=== PATIENT | female | born 1955 | race Caucasian/White ===

== ENCOUNTER → 2020-05-26 20:17 | Outpatient (CLI) | payer MEDICARE, BC, SELFPAY | PROVIDERS: PCP Family Medicine; Referring Provider Family Medicine; Visit Provider Family Medicine | DX: G47.33 Obstructive sleep apnea (adult) (pediatric) (principal); R60.0 Localized edema | CPT/HCPCS: 95810 ==

== ENCOUNTER → 2020-07-15 20:32 | Outpatient (CLI) | payer MEDICARE, BC, SELFPAY | PROVIDERS: PCP Family Medicine; Visit Provider Family Medicine | DX: G47.33 Obstructive sleep apnea (adult) (pediatric) (principal) | CPT/HCPCS: 95811 ==

== ENCOUNTER 2021-07-15 08:45 | Outpatient (RCR) | payer MEDICARE, BC, SELFPAY ==
[2021-07-08 08:27] VITALS: BP 171/76; PULSE 61; TEMP 36.4
--- NOTE | 2021-07-08 09:05 | PCM.WC.HP ---
History of Present Illness Date of Service: 07/08/21 Chief Complaint: Follow-up right lower leg puncture wound nonhealing since February or March History of Wound: 66-year-old white female with a history of peripheral vascular disease and has had several venous repairs on the right lower leg , unable to stand because was up in her right groin. So she has constant pain and some swelling on and off in her lower extremities. She was hunting for mushrooms at the time that she was stuck by a briar [employer] Hand she had 2 puncture wounds one healed and one did not. She has been using cortisone cream on it per her doctor's orders. [facility] Home Medications Multi-Daily 07/08/21 [History Last Taken Unknown] acetaminophen [Tylenol Ex Str Arthritis Pain] 1,000 mg PO Q6H PRN 07/08/21 [History Last Taken Unknown] bupropion HCl [Wellbutrin SR] mg PO 07/08/21 [History Last Taken Unknown] glucosamine sulfate [Glucosamine] 500 mg PO DAILY 07/08/21 [History Last Taken Unknown] levothyroxine [Synthroid] 100 mcg PO DAILY 07/08/21 [History Last Taken Unknown] meloxicam [Mobic] 7.5 mg PO DAILY 07/08/21 [History Last Taken Unknown] omega-3 fatty acids [[place] 3] 500 mg PO DAILY 07/08/21 [History Last Taken Unknown] psyllium [Metamucil] 1 packet PO TID 07/08/21 [History Last Taken Unknown] ROS Integumentary Integumentary: Reports non-healing lesions and wounds Vital Signs Vital Signs Vital Signs: 07/08/21 08:27 Temperature 97.5 F L Temperature Source Oral Pulse Rate 61 Blood Pressure 171/76 H Blood Pressure Mean 107 Blood Pressure Source Monitor Blood Pressure Position Semi-Fowlers Blood Pressure Location Left Arm Physical Exam Const oriented x3 General Appearance: cooperative Exam Limitations: no limitations Resp normal respiratory effort Effort and Inspection: able to speak in complete sentences Auscultation: clear to auscultation bilaterally Cardio regular rate and regular rhythm Palpation: normal PMI Rate: regular rate Rhythm: regular rhythm GI Auscultation: normoactive bowel sounds Palpation: soft and no hepatosplenomegaly Extremity normal to inspection General Extremity: normal exam except as noted Skin Trauma: puncture Neuro oriented x3 Psych Appearance: grossly normal Speech: normal speech Thought Content: normal thought content Judgement: judgement good Debridement Note Debridement Note Wound debrided: Right lower ankle puncture wound from trauma Type of Debridement: Excisional debridement Anesthesia Used: 5% Lidocaine Gel Depth: Down to and including healthy tissue Percentage of wound debrided: 100 Instrument Used: 3mm curette Severity: Fat Layer Exposed Amount of bleeding with debridement: Mild Bleeding Controlled with: Pressure Patient tolerated procedure: Patient tolerated procedure well Post-Debridement Measurements and Additional Note: Post-Debridement Measurements/Treatment - Nurse 1 - General Ulcer Assessment Start: 07/08/21 08:26 Freq: Status: Active Protocol: NOHEMI Activity Type Activity Date Activity User E-Sign Co-Sign Detail Recorded Client Recorded Date Recorded By Document 07/08/21 08:27 KEVIN [id number] 07/08/21 08:29 07/08/21 08:27 WC - Today's Visit Information Type of service Initial Visit Arrival Mode Ambulatory Patient Identification Verified (Name & Yes ) Vital Signs Temperature (97.8 F-99.1 F) 97.5 F L Temperature Source Oral Pulse Rate (60-100) 61 Pulse Location Monitor Blood Pressure (90/60-120/80) 171/76 H Blood Pressure Mean 107 Source Monitor Position Semi-Fowlers Blood Pressure Location Left Arm History Since Last Visit- (Skip if this is Patient's initial visit) Have you changed medications since your No last visit? Any new allergies or adverse reactions No Had a fall/change in ADL's that may No increase risk of falls Signs or symptoms of abuse and/or No neglect since last visit Have you been in the hospital since your No last visit? Has dressing in place as prescribed No Has compression in place as prescribed N/A Has offloadiing in place as prescribed N/A Experienced any changes in pain level or No management Left Footwear Regular Shoe Right Footwear Regular Shoe Pain Scale: 0-10 Numeric Is Patient Pain Free? Yes - Nurse 1 - General Ulcer Measurement Start: 07/08/21 08:26 Freq: Status: Active Protocol: Activity Type Activity Date Activity User E-Sign Co-Sign Detail Recorded Client Recorded Date Recorded By Document 07/08/21 08:27 KEVIN [id number] 07/08/21 08:29 KEVIN 07/08/21 08:27 Wound Center Nurse 1 #1 Right Medial Ankle -Current Size (cm) - Length 0.2 -Current Size (cm) - Width 0.2 -Current Size (cm) - Depth 0.2 -Total Square Cm 0.04 -Granulation Amt Small (1-33%) -Granulation Quality [place] -Necrosis Amt Small (1-33%) -Necrotic Tissue Type Adherent Slough -Texture (Ana-wound Skin Appearance) Assessed, Scarring -Moisture (Ana-wound Skin Appearance) Assessed,Dry/ Scaly -Color (Ana-wound Skin Appearance) No Abnormality, Assessed -Temperature (Ana-wound Skin No Abnormality Appearance) (Pt Warm) -Tenderness on Palpation (Ana-wound No Skin Appearance) -Ulcer Cleansing Rinsed/ Irrigated with Saline -Anesthetic Used 4% Lidocaine Solution,5% Lidocaine Gel Right Calf (cm) 46 Right Ankle (cm) 22 WC - Nurse 2 - General Ulcer CM Notes Start: 07/08/21 08:26 Freq: Status: Active Protocol: Activity Type Activity Date Activity User E-Sign Co-Sign Detail Recorded Client Recorded Date Recorded By Document 07/08/21 08:51 MW [id number] 07/08/21 08:57 MW 07/08/21 08:51 Wound Center Nurse 2 #1 Right Medial Ankle -Time 08:53 -Correct Patient Yes -Correct Side, Site, Position Yes -Correct Procedure Yes -Procedure Performed Yes -Type of Procedure Debridement -Clinical Debridement Subcutaneous -Tissue Removed Subcutaneous -Post Debridement (cm) - Length 0.3 -Post Debridement (cm) - Width 0.3 -Post Debridement (cm) - Depth 0.2 -Total Square (Post) (cm) 0.09 -Area of Debridement (cm) - Length 0.3 -Area of Debridement (cm) - Width 0.3 -Total Square (Area) (cm) 0.09 -Tunneling No -Undermining/Tunneling No -Circular Undermining No -Wound/Ulcer Outcome Not Healed -Ulcer Cleansing Rinsed/ Irrigated with Saline -Foul Odor after Cleansing No -Bioengineered Tissue No -Bleeding Controlled with Pressure -Offloading No -Debridement - Subq, 1st 20sq cm Yes Pain Scale: 0-10 Numeric Is Patient Pain Free? Yes MARVIN - Nurse 3 - General Ulcer D/C NN Start: 07/08/21 08:26 Freq: Status: Active Protocol: Activity Type Activity Date Activity User E-Sign Co-Sign Detail Recorded Client Recorded Date Recorded By Document 07/08/21 09:03 BECKY [id number] 07/08/21 09:04 BECKY 07/08/21 09:03 Wound Care Nurse 3 #1 Right Medial Ankle -Ulcer Cleansing Rinsed/ Irrigated with Saline -Foul Odor after Cleansing No -Negative Pressure Wound Therapy N/A -Primary Dressing Applied NonAdherent Contact Layer, Promogran -Primary Dressing Covered/Secured with Dry Gauze, Secured with Tape -Promogran 1 WC - Visit Discharge Discharge Condition Stable Ambulatory Status Ambulatory Transportation Private Auto Medication Reconcilliation completed & Yes provided to patient/care provider Clinical Summary of Care Provided Yes Assessment/Plan Assessment/Plan (1) Infected wound: CODE(S): T14.8XXA - Other injury of unspecified body region, initial encounter; L08.9 - Local infection of the skin and subcutaneous tissue, unspecified PLAN: We'll call with the culture results (2) Puncture wound: CODE(S): T14.8XXA - Other injury of unspecified body region, initial encounter PLAN: Wash leg with antibacterial soap pack small wound with Promogran Adaptic over top gauze dressing and Olga every day Follow-up in 1 week (3) Peripheral vascular disease: CODE(S): I73.9 - Peripheral vascular disease, unspecified PLAN: Start wearing the pression stockings that were prescribed to the right leg (4) Edema of right lower leg: CODE(S): R60.0 - Localized edema
[2021-07-15 09:02] VITALS: BP 160/70; PULSE 62; TEMP 36.6
--- NOTE | 2021-07-15 09:16 | PN.PCM_ITS ---
History of Present Illness Date of Service: 07/15/21 Chief Complaint: Follow-up right lower leg puncture wound nonhealing since February or March History of Wound: 66-year-old white female with a history of peripheral vascular disease and has had several venous repairs on the right lower leg , unable to st and because was up in her right groin. So she has constant pain and some swelling on and off in her lower extremities. She was hunting for mushrooms at the time that she was stuck by a briar [employer] she had 2 puncture wounds one healed and one did not. She has been using cortisone cream on it per her doctor's orders. Progress of Wound: Cultures came back positive for strep patient will be started on clindamycin which she only started this last Tuesday. The wound still looks angry some redness around the wound tender to palpate and still has a lot of slough in the base of the wound. Subjective Subjective Patient complains of soreness edema is better with wearing the compression stocking Objective Data Objective Data As explained above patient is growing a bacteria once the antibiotic kicks in I think the redness will disappear patient is on Promogran we will continue using that for now the wound really has not moved in the last week. Vital Signs: Vital Signs Temp Pulse BP 97.8 F 62 160/70 H 07/15/21 09:02 07/15/21 09:02 07/15/21 09:02 Lab / Micro Data Attestation: I reviewed the patient's lab results. Micro: Microbiology 07/08/21 08:50 Wound Abcess - Ankle Gram Stain - Final 07/08/21 08:50 Wound Abcess - Ankle Wound Culture - Final Streptococcus agalactiae (B) 07/08/21 08:50 Wound Abcess - Ankle Anaerobic Culture - Final No anaerobic bacteria isolated. Physical Exam Const oriented x3 General Appearance: cooperative Exam Limitations: no limitations Resp normal respiratory effort Effort and Inspection: able to speak in complete sentences Auscultation: clear to auscultation bilaterally Cardio regular rate and regular rhythm Palpation: normal PMI Rate: regular rate Rhythm: regular rhythm GI Auscultation: normoactive bowel sounds Palpation: soft and no hepatosplenomegaly Extremity normal to inspection General Extremity: normal exam except as noted Skin Trauma: puncture Neuro oriented x3 Psych Appearance: grossly normal Speech: normal speech Thought Content: normal thought content Judgement: judgement good Debridement Note Debridement Note Wound debrided: puncture wound from trauma Laterality: Right Type of Debridement: Excisional debridement Anesthesia Used: 5% Lidocaine Gel Depth: Down to and including healthy tissue Percentage of wound debrided: 100 Instrument Used: 3mm curette Tissue Removed: slough Severity: Fat Layer Exposed Amount of bleeding with debridement: None Bleeding Controlled with: Pressure Patient tolerated procedure: Patient tolerated procedure well Post-Debridement Measurements and Additional Note: Post-Debridement Measurements/Treatment - Nurse 1 - General Ulcer Assessment Start: 07/08/21 08:26 Freq: Status: Active Protocol: [email or web address][employer] Activity Type Activity Date Activity User E-Sign Co-Sign Detail Recorded Client Recorded Date Recorded By Document 07/08/21 08:27 KR [id number] 07/08/21 08:29 KR Document 07/15/21 09:02 AK [id number] 07/15/21 09:04 AK 07/08/21 07/15/21 08:27 09:02 WC - Today's Visit Information Type of service Initial Visit 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 Any new allergies or adverse reactions No No Had a fall/change in ADL's that may No No increase risk of falls Signs or symptoms of abuse and/or No No neglect since last visit Have you been in the hospital since your No No last visit? Has dressing in place as prescribed No Yes Has compression in place as prescribed N/A N/A Has offloadiing in place as prescribed N/A N/A Experienced any changes in pain level or No No management Left Footwear Regular Shoe Regular Shoe Right Footwear Regular Shoe Regular Shoe Pain Scale: 0-10 Numeric Is Patient Pain Free? Yes - Nurse 1 - General Ulcer Measurement Start: 07/08/21 08:26 Freq: Status: Active Protocol: Activity Type Activity Date Activity User E-Sign Co-Sign Detail Recorded Client Recorded Date Recorded By Document 07/08/21 08:27 KR [id number] 07/08/21 08:29 KR Document 07/15/21 09:02 AK [id number] 07/15/21 09:04 AK 07/08/21 07/15/21 08:27 09:02 Wound Center Nurse 1 #1 Right Medial Ankle -Combined with other wound No -Current Size (cm) - Length 0.2 0.2 -Current Size (cm) - Width 0.2 0.2 -Current Size (cm) - Depth 0.2 0.2 -Total Square Cm 0.04 0.04 -Photo Taken No -Epithelialization None Present -Tunneling No -Undermining/Tunneling No -Circular Undermining No -Change in Wound Grade/Stage No -Exudate Amt Medium -Exudate Type Serosanguineous -Wound Margin Distinct, Outline Attached -Granulation Amt Small (1-33%) None Present (0 %) -Granulation Quality [place] N/A -Slough/Fibrin Yes -Necrosis Amt Small (1-33%) Small (1-33%) -Necrotic Tissue Type Adherent Slough Adherent Slough -Structure Exposed N/A -Texture (Ana-wound Skin Appearance) Assessed, No Abnormality, Scarring Assessed -Moisture (Ana-wound Skin Appearance) Assessed,Dry/ No Abnormality, Scaly Assessed -Color (Ana-wound Skin Appearance) No Abnormality, No Abnormality, Assessed Assessed -Temperature (Ana-wound Skin No Abnormality No Abnormality Appearance) (Pt Warm) (Pt Warm) -Tenderness on Palpation (Ana-wound No Yes Skin Appearance) -Ulcer Cleansing Rinsed/ Rinsed/ Irrigated with Irrigated with Saline Saline -Foul Odor after Cleansing No -Anesthetic Used 4% Lidocaine 5% Lidocaine Solution,5% Gel Lidocaine Gel Right Calf (cm) 46 Right Ankle (cm) 22 WC - Nurse 2 - General Ulcer CM Notes Start: 07/08/21 08:26 Freq: Status: Active Protocol: Activity Type Activity Date Activity User E-Sign Co-Sign Detail Recorded Client Recorded Date Recorded By Document 07/08/21 08:51 MW [id number] 07/08/21 08:57 MW Document 07/15/21 09:09 [id number] 07/15/21 09:15 07/08/21 07/15/21 08:51 09:09 Wound Center Nurse 2 #1 Right Medial Ankle -Time 08:53 09:12 -Correct Patient Yes Yes -Correct Side, Site, Position Yes Yes -Correct Procedure Yes Yes -Procedure Performed Yes Yes -Type of Procedure Debridement Debridement -Clinical Debridement Subcutaneous Subcutaneous -Tissue Removed Subcutaneous Subcutaneous -Post Debridement (cm) - Length 0.3 0.3 -Post Debridement (cm) - Width 0.3 0.3 -Post Debridement (cm) - Depth 0.2 0.3 -Total Square (Post) (cm) 0.09 0.09 -Area of Debridement (cm) - Length 0.3 0.3 -Area of Debridement (cm) - Width 0.3 0.3 -Total Square (Area) (cm) 0.09 0.09 -Tunneling No No -Undermining/Tunneling No No -Circular Undermining No No -Wound/Ulcer Outcome Not Healed Not Healed -Ulcer Cleansing Rinsed/ Rinsed/ Irrigated with Irrigated with Saline Saline -Foul Odor after Cleansing No No -Bioengineered Tissue No No -Bleeding Controlled with Pressure Pressure -Offloading No No -Treatment Response Procedure Tolerated Well -Debridement - Subq, 1st 20sq cm Yes Yes Pain Scale: 0-10 Numeric Is Patient Pain Free? Yes Yes - Nurse 3 - General Ulcer D/C NN Start: 07/08/21 08:26 Freq: Status: Active Protocol: Activity Type Activity Date Activity User E-Sign Co-Sign Detail Recorded Client Recorded Date Recorded By Document 07/08/21 09:03 CA [id number] 07/08/21 09:04 CA 07/08/21 09:03 Wound Care Nurse 3 #1 Right Medial Ankle -Ulcer Cleansing Rinsed/ Irrigated with Saline -Foul Odor after Cleansing No -Negative Pressure Wound Therapy N/A -Primary Dressing Applied NonAdherent Contact Layer, Promogran -Primary Dressing Covered/Secured with Dry Gauze, Secured with Tape -Promogran 1 - Visit Discharge Discharge Condition Stable Ambulatory Status Ambulatory Transportation Private Auto Medication Reconcilliation completed & Yes provided to patient/care provider Clinical Summary of Care Provided Yes Assessment/Plan Assessment/Plan (1) Infected wound: CODE(S): T14.8XXA - Other injury of unspecified body region, initial encounter; L08.9 - Local infection of the skin and subcutaneous tissue, unspecified PLAN: start clindamycin antibiotic bid for 14 days (2) Puncture wound: CODE(S): T14.8XXA - Other injury of unspecified body region, initial encounter PLAN: Wash leg with antibacterial soap pack small wound with Promogran Adaptic over top gauze dressing and Olga every day Follow-up in 1 week (3) Peripheral vascular disease: CODE(S): I73.9 - Peripheral vascular disease, unspecified PLAN: Start wearing the pression stockings that were prescribed to the right leg (4) Edema of right lower leg: CODE(S): R60.0 - Localized edema
== END 2021-07-23 23:59 ==
LOC: WC 08:45
PROVIDERS: PCP Family Medicine; Visit Provider Nurse Practitioner
DX: S81.831A Puncture wound without foreign body, right lower leg, initial encounter (principal); W60.XXXA Contact with nonvenomous plant thorns and spines and sharp leaves, initial encounter; Y93.89 Activity, other specified; Y92.9 Unspecified place or not applicable; I73.9 Peripheral vascular disease, unspecified; R60.0 Localized edema; M79.89 Other specified soft tissue disorders; Z79.899 Other long term (current) drug therapy
CPT/HCPCS: 11042; 87070; 87075; 87077; 87186; 87205; 99203; G0463

== ENCOUNTER 2021-08-19 09:00 | Outpatient (RCR) | payer MEDICARE, BC, SELFPAY ==
[2021-07-24 00:37] VITALS: BP 160/70; PULSE 62; TEMP 36.6
[2021-07-29 08:56] VITALS: TEMP 36.2
--- NOTE | 2021-07-29 09:19 | PN.PCM_ITS ---
History of Present Illness Date of Service: 07/29/21 Chief Complaint: Follow-up right lower leg puncture wound nonhealing since February or March History of Wound: 66-year-old white female with a history of peripheral vascular disease and has had several venous repairs on the right lower leg , unable to st and because was up in her right groin. So she has constant pain and some swelling on and off in her lower extremities. She was hunting for mushrooms at the time that she was stuck by a briar richardson Hand she had 2 puncture wounds one healed and one did not. She has been using cortisone cream on it per her doctor's orders. Progress of Wound: Was camping for a week so therefore have not seen for 2 weeks. Still has a puncture wound no redness noted. Finished antibiotics this last weekend. States there is no more pain Subjective Subjective Claims there is no pain in the site anymore and swelling is better Objective Data Objective Data Puncture wound right medial ankle not much change we will continue with Promogran Vital Signs: Vital Signs Temp Pulse BP 97.1 F L 62 160/70 H 07/29/21 08:56 07/24/21 00:37 07/24/21 00:37 Physical Exam Const oriented x3 General Appearance: cooperative Exam Limitations: no limitations Resp normal respiratory effort Effort and Inspection: able to speak in complete sentences Auscultation: clear to auscultation bilaterally Cardio regular rate and regular rhythm Palpation: normal PMI Rate: regular rate Rhythm: regular rhythm GI Auscultation: normoactive bowel sounds Palpation: soft and no hepatosplenomegaly Extremity normal to inspection General Extremity: normal exam except as noted Skin Trauma: puncture Neuro oriented x3 Psych Appearance: grossly normal Speech: normal speech Thought Content: normal thought content Judgement: judgement good Debridement Note Debridement Note Wound debrided: Right medial ankle Laterality: Right Type of Debridement: Excisional debridement Anesthesia Used: 5% Lidocaine Gel Depth: Down to and including healthy tissue Percentage of wound debrided: 100 Instrument Used: 3mm curette Tissue Removed: Product and fibrin Severity: Limited To Skin Breakdown Amount of bleeding with debridement: None Bleeding Controlled with: Pressure Patient tolerated procedure: Patient tolerated procedure well Post-Debridement Measurements and Additional Note: Post-Debridement Measurements/Treatment MARVIN - Nurse 1 - General Ulcer Assessment Start: 07/29/21 08:55 Freq: Status: Active Protocol: NOHEMI Activity Type Activity Date Activity User E-Sign Co-Sign Detail Recorded Client Recorded Date Recorded By Document 07/29/21 08:56 AK [id number] 07/29/21 09:01 ID 07/29/21 08:56 MARVIN - Today's Visit Information Type of service Follow-up Visit (Physician/ZONING ADMINISTRATOR ) Arrival Mode Ambulatory Patient Identification Verified (Name & Yes ) Safety Precautions NA Vital Signs Temperature (97.8 F-99.1 F) 97.1 F L Temperature Source Temporal History Since Last Visit- (Skip if this is Patient's initial visit) Have you changed medications since your No last visit? Any new allergies or adverse reactions No Had a fall/change in ADL's that may No increase risk of falls Signs or symptoms of abuse and/or No neglect since last visit Have you been in the hospital since your No last visit? Has dressing in place as prescribed Yes Has compression in place as prescribed N/A Experienced any changes in pain level or No management Left Footwear Regular Shoe Right Footwear Regular Shoe - Nurse 1 - General Ulcer Measurement Start: 07/29/21 08:55 Freq: Status: Active Protocol: Activity Type Activity Date Activity User E-Sign Co-Sign Detail Recorded Client Recorded Date Recorded By Document 07/29/21 08:56 AK [id number] 07/29/21 09:01 [id number] 07/29/21 08:56 Wound Center Nurse 1 #1 Right Medial Ankle -Combined with other wound No -Current Size (cm) - Length 0.1 -Current Size (cm) - Width 0.1 -Current Size (cm) - Depth 0.1 -Total Square Cm 0.01 -Photo Taken No -Tunneling No -Undermining/Tunneling No -Circular Undermining No -Change in Wound Grade/Stage No -Exudate Amt None Present -Wound Margin Distinct, Outline Attached -Granulation Amt None Present (0 %) -Granulation Quality N/A -Slough/Fibrin No -Necrosis Amt None Present (0 %) -Structure Exposed N/A -Texture (Ana-wound Skin Appearance) No Abnormality, Assessed -Moisture (Ana-wound Skin Appearance) No Abnormality, Assessed -Color (Ana-wound Skin Appearance) No Abnormality, Assessed -Temperature (Ana-wound Skin No Abnormality Appearance) (Pt Warm) -Tenderness on Palpation (Ana-wound No Skin Appearance) -Ulcer Cleansing Rinsed/ Irrigated with Saline -Foul Odor after Cleansing No -Anesthetic Used 5% Lidocaine Gel WC - Nurse 2 - General Ulcer CM Notes Start: 07/29/21 08:55 Freq: Status: Active Protocol: Activity Type Activity Date Activity User E-Sign Co-Sign Detail Recorded Client Recorded Date Recorded By Document 07/29/21 09:13 MW [id number] 07/29/21 09:14 MW 07/29/21 09:13 Wound Center Nurse 2 -Time 09:13 -Correct Patient Yes -Correct Side, Site, Position Yes -Correct Procedure Yes -Procedure Performed Yes -Type of Procedure Debridement -Clinical Debridement Subcutaneous -Tissue Removed Subcutaneous -Post Debridement (cm) - Length 0.3 -Post Debridement (cm) - Width 0.3 -Post Debridement (cm) - Depth 0.2 -Total Square (Post) (cm) 0.09 -Area of Debridement (cm) - Length 0.3 -Area of Debridement (cm) - Width 0.3 -Total Square (Area) (cm) 0.09 -Tunneling No -Undermining/Tunneling No -Circular Undermining No -Wound/Ulcer Outcome Not Healed -Ulcer Cleansing Rinsed/ Irrigated with Saline -Foul Odor after Cleansing No -Bioengineered Tissue No -Bleeding Controlled with Pressure -Offloading No -Treatment Response Procedure Tolerated Well -Debridement - Subq, 1st 20sq cm Yes Pain Scale: 0-10 Numeric Is Patient Pain Free? Yes - Nurse 3 - General Ulcer D/C NN Start: 07/29/21 08:55 Freq: Status: Active Protocol: Activity Type Activity Date Activity User E-Sign Co-Sign Detail Recorded Client Recorded Date Recorded By Document 07/29/21 09:17 MW [id number] 07/29/21 09:18 MW 07/29/21 09:17 Wound Care Nurse 3 #1 Right Medial Ankle -Ulcer Cleansing Rinsed/ Irrigated with Saline -Foul Odor after Cleansing No -Negative Pressure Wound Therapy N/A -Primary Dressing Applied Promogran -Primary Dressing Covered/Secured with Dry Gauze, Secured with Tape -Promogran 0 WC - Visit Discharge Discharge Condition Stable Ambulatory Status Ambulatory Transportation Private Auto Medication Reconcilliation completed & No provided to patient/care provider Clinical Summary of Care Provided Yes Assessment/Plan Assessment/Plan (1) Infected wound: CODE(S): T14.8XXA - Other injury of unspecified body region, initial encounter; L08.9 - Local infection of the skin and subcutaneous tissue, unspecified PLAN: Finished clindamycin antibiotic bid for 14 days (2) Puncture wound: CODE(S): T14.8XXA - Other injury of unspecified body region, initial encounter PLAN: Wash leg with antibacterial soap pack small wound with Promogran Adaptic over top gauze dressing and Olga every day Follow-up in 1 week (3) Peripheral vascular disease: CODE(S): I73.9 - Peripheral vascular disease, unspecified PLAN: Start wearing the pression stockings that were prescribed to the ri t leg (4) Edema of right lower leg: CODE(S): R60.0 - Localized edema
[2021-08-05 09:06] VITALS: TEMP 36.2
--- NOTE | 2021-08-05 10:24 | PCM.WC.PN ---
History of Present Illness Date of Service: 08/05/21 Chief Complaint: Follow-up right lower leg puncture wound nonhealing since February or March History of Wound: 66-year-old white female with a history of peripheral vascular disease and has had several venous repairs on the right lower leg , unable to stand because was up in her right groin. So she has constant pain and some swelling on and off in her lower extremities. She was hunting for mushrooms at the time that she was stuck by a briar richardson Hand she had 2 puncture wounds one healed and one did not. She has been using cortisone cream on it per her doctor's orders. Progress of Wound: Still has a puncture wound with redness noted. States there is no more pain. Has developed some erythema around the wound wondering if it is irritation from the Adaptic. The puncture hole still looks deep but looks very clean this week with the Promogran. Since measurements are still about the same we are trying to get a arterial brachial study and venous study on her leg she does complain of tenderness and swelling of her lower extremities. 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 We will get venous studies and arterial studies on her and see if that is the issue is prohibiting healing Vital Signs: Vital Signs Temp Pulse BP 97.2 F L 62 160/70 H 08/05/21 09:06 07/24/21 00:37 07/24/21 00:37 Lab / Micro Data Attestation: I reviewed the patient's lab results. Physical Exam Const oriented x3 General Appearance: cooperative Exam Limitations: no limitations Resp normal respiratory effort Effort and Inspection: able to speak in complete sentences Auscultation: clear to auscultation bilaterally Cardio regular rate and regular rhythm Palpation: normal PMI Rate: regular rate Rhythm: regular rhythm GI Auscultation: normoactive bowel sounds Palpation: soft and no hepatosplenomegaly Extremity normal to inspection General Extremity: normal exam except as noted Skin Trauma: puncture Neuro oriented x3 Psych Appearance: grossly normal Speech: normal speech Thought Content: normal thought content Judgement: judgement good Debridement Note Debridement Note Wound debrided: Right medial ankle trauma puncture Laterality: Right Type of Debridement: Excisional debridement Depth: in the subcutaneous layer Percentage of wound debrided: 100 Instrument Used: 3mm curette Tissue Removed: Fibrin Severity: Fat Layer Exposed Amount of bleeding with debridement: Mild Bleeding Controlled with: Pressure Patient tolerated procedure: Patient tolerated procedure well Post-Debridement Measurements and Additional Note: Post-Debridement Measurements/Treatment - Nurse 1 - General Ulcer Assessment Start: 07/29/21 08:55 Freq: Status: Active Protocol: NOHEMI Activity Type Activity Date Activity User E-Sign Co-Sign Detail Recorded Client Recorded Date Recorded By Document 07/29/21 08:56 [place] [id number] 07/29/21 09:01 AK Document 08/05/21 09:06 AK [id number] 08/05/21 09:10 AK 07/29/21 08/05/21 08:56 09:06 - Today's Visit Information Type of service Follow-up Visit Follow-up Visit (Physician/DIRECTOR PHARMACOVIGILANCE (Physician/DIRECTOR PHARMACOVIGILANCE ) ) Arrival Mode Ambulatory Ambulatory Patient Identification Verified (Name & Yes Yes ) Patient Requires Transmission-Based No Precautions Safety Precautions NA NA Vital Signs Temperature (97.8 F-99.1 F) 97.1 F L 97.2 F L Temperature Source Temporal Oral History Since Last Visit- (Skip if this is Patient's initial visit) Have you changed medications since your No No last visit? Any new allergies or adverse reactions No No Had a fall/change in ADL's that may No No increase risk of falls Signs or symptoms of abuse and/or No No neglect since last visit Have you been in the hospital since your No No last visit? Has dressing in place as prescribed Yes Yes Has compression in place as prescribed N/A Yes Has offloadiing in place as prescribed N/A Experienced any changes in pain level or No No management Left Footwear Regular Shoe Regular Shoe Right Footwear Regular Shoe Regular Shoe - Nurse 1 - General Ulcer Measurement Start: 07/29/21 08:55 Freq: Status: Active Protocol: Activity Type Activity Date Activity User E-Sign Co-Sign Detail Recorded Client Recorded Date Recorded By Document 07/29/21 08:56 [place] [id number] 07/29/21 09:01 AK Document 08/05/21 09:06 AK [id number] 08/05/21 09:10 AK 07/29/21 08/05/21 08:56 09:06 Wound Center Nurse 1 #1 Right Medial Ankle -Combined with other wound No No -Current Size (cm) - Length 0.1 0.2 -Current Size (cm) - Width 0.1 0.2 -Current Size (cm) - Depth 0.1 0.2 -Total Square Cm 0.01 0.04 -Photo Taken No No -Epithelialization None Present -Tunneling No No -Undermining/Tunneling No No -Circular Undermining No No -Change in Wound Grade/Stage No No -Exudate Amt None Present Medium -Exudate Type Serosanguineous -Wound Margin Distinct, Distinct, Outline Outline Attached Attached -Granulation Amt None Present (0 %) -Granulation Quality N/A -Slough/Fibrin No Yes -Necrosis Amt None Present (0 Medium (34-66%) %) -Necrotic Tissue Type Adherent Slough -Structure Exposed N/A N/A -Texture (Ana-wound Skin Appearance) No Abnormality, Assessed, Assessed Scarring -Moisture (Ana-wound Skin Appearance) No Abnormality, No Abnormality, Assessed Assessed -Color (Ana-wound Skin Appearance) No Abnormality, Assessed, Assessed Hemosiderin Staining -Temperature (Ana-wound Skin No Abnormality No Abnormality Appearance) (Pt Warm) (Pt Warm) -Tenderness on Palpation (Ana-wound No No Skin Appearance) -Ulcer Cleansing Rinsed/ Rinsed/ Irrigated with Irrigated with Saline Saline -Foul Odor after Cleansing No No -Anesthetic Used 5% Lidocaine 5% Lidocaine Gel Gel Lower Limb Edema Present No Right Calf (cm) 46.5 Right Ankle (cm) 22 WC - Nurse 2 - General Ulcer CM Notes Start: 07/29/21 08:55 Freq: Status: Active Protocol: Activity Type Activity Date Activity User E-Sign Co-Sign Detail Recorded Client Recorded Date Recorded By Document 07/29/21 09:13 MW [id number] 07/29/21 09:14 MW Document 08/05/21 09:34 MW [id number] 08/05/21 09:38 MW 07/29/21 08/05/21 09:13 09:34 Wound Center Nurse 2 #1 Right Medial Ankle -Time 09: 09:37 -Correct Patient Yes Yes -Correct Side, Site, Position Yes Yes -Correct Procedure Yes Yes -Procedure Performed Yes Yes -Type of Procedure Debridement Debridement -Clinical Debridement Subcutaneous Subcutaneous -Tissue Removed Subcutaneous Subcutaneous -Post Debridement (cm) - Length 0.3 0.3 -Post Debridement (cm) - Width 0.3 0.3 -Post Debridement (cm) - Depth 0.2 0.2 -Total Square (Post) (cm) 0.09 0.09 -Area of Debridement (cm) - Length 0.3 0.3 -Area of Debridement (cm) - Width 0.3 0.3 -Total Square (Area) (cm) 0.09 0.09 -Tunneling No No -Undermining/Tunneling No No -Circular Undermining No No -Wound/Ulcer Outcome Not Healed Not Healed -Ulcer Cleansing Rinsed/ Rinsed/ Irrigated with Irrigated with Saline Saline -Foul Odor after Cleansing No No -Bioengineered Tissue No No -Bleeding Controlled with Pressure Pressure -Offloading No No -Treatment Response Procedure Procedure Tolerated Well Tolerated Well -Debridement - Subq, 1st 20sq cm Yes Yes Pain Scale: 0-10 Numeric Is Patient Pain Free? Yes WC - Nurse 3 - General Ulcer D/C NN Start: 07/29/21 08:55 Freq: Status: Active Protocol: Activity Type Activity Date Activity User E-Sign Co-Sign Detail Recorded Client Recorded Date Recorded By Document 07/29/21 09:17 MW [id number] 07/29/21 09:18 MW Document 08/05/21 09:42 AK [id number] 08/05/21 09:44 AK 07/29/21 08/05/21 09:17 09:42 Wound Care Nurse 3 #1 Right Medial Ankle -Ulcer Cleansing Rinsed/ Rinsed/ Irrigated with Irrigated with Saline Saline -Foul Odor after Cleansing No -Negative Pressure Wound Therapy N/A -Primary Dressing Applied Promogran Promogran -Primary Dressing Covered/Secured with Dry Gauze, Dry Gauze, Secured with Secured with Tape Tape -Promogran 0 1 Right -Lotion applied to leg before No compression wrap -Stockings Yes -Other OWN Left -Lotion applied to leg before No compression wrap -Stockings Yes -Other OWN - Visit Discharge Discharge Condition Stable Stable Ambulatory Status Ambulatory Ambulatory Transportation Private Auto Private Auto Medication Reconcilliation completed & No Yes provided to patient/care provider Clinical Summary of Care Provided Yes Yes Assessment/Plan Assessment/Plan (1) Infected wound: CODE(S): T14.8XXA - Other injury of unspecified body region, initial encounter; L08.9 - Local infection of the skin and subcutaneous tissue, unspecified PLAN: Finished clindamycin antibiotic bid for 14 days (2) Puncture wound: CODE(S): T14.8XXA - Other injury of unspecified body region, initial encounter PLAN: Wash leg with antibacterial soap pack small wound with Promogran top with gauze dressing and Olga every day Follow-up in 2 week (3) Peripheral vascular disease: CODE(S): I73.9 - Peripheral vascular disease, unspecified PLAN: Start wearing the pression stockings that were prescribed to the right leg (4) Edema of right lower leg: CODE(S): R60.0 - Localized edema PLAN: We will get order for MONTSE and venous studies
--- NOTE | 2021-08-17 09:51 | ART_ITS ---
Reason For Study: EDEMA Procedure A bilateral lower extremity continuous wave Doppler with analog waveform analysis,segmental pressures,and ankle brachial indexes without exercise. Left Segmental Pressures Left brachial= 147mmHg. Left posterior tibial artery = 183mmHg. Left dorsalis pedis artery = 180mmHg. Left digit = 142 mmHg. The left dorsalis pedis waveforms are triphasic. The left posterior tibial artery waveforms are triphasic. Right Segmental Pressures Right brachial= 142mmHg. Right posterior tibial artery = 181mmHg. Right dorsalis pedis artery = 186mmHg. Right digit = 141 mmHg. The right dorsalis pedis waveforms are triphasic. The right posterior tibial artery waveforms are triphasic. Indices The right ankle brachial index by the posterior tibial artery is 1.23. The right ankle brachial index by the dorsalis pedis is 1.27. The right digital-brachial index is .96. The left ankle brachial index by the posterior tibial artery is 1.24. The left ankle brachial index by the dorsalis pedis is 1.22. The left digital-brachial index is .97. VL/Lower Ext Art Exam w/o Exercis Interpretation Summary Triphasic Doppler waveforms are noted at ankle level bilaterally. Pulse-volume recordings appear satisfactory at all levels bilaterally, including low thigh, calf, ankle, and d igital levels. Resting ankle-brachial indices are normal bilaterally. Digital-brachial indices are normal bilaterally. There is no evidence of significant arterial occlusive disease in the lower ext remities bilaterally. Ordering Physician: Giovanna Anton Referring Physician: LEXIE HALL Performed By: SIMON BENNETT RDCS
--- NOTE | 2021-08-17 09:51 | VDLE_ITS ---
Reason For Study: EDEMA RIGHT LEFT CFV is compressible, spontaneous, phasic, CFV is compressible, spontaneous, phasic, competent and demonstrates normal competent, and demonstrates normal augmentation. augmentation. FV is compressible, spontaneous, phasic, FV is compressible, spontaneous, phasic, competent and demonstrates normal competent and demonstrates normal augmentation. augmentation. POP V is compressible, spontaneous, phasic, POP V is compressible, spontaneous, phasic, competent and demonstrates normal competent and demonstrates normal augmentation. augmentation. T/P Trunk is compressible. T/P Trunk is compressible. PTV is compressible. PTV is compressible. RT PerV is compressible. LT PerV is compressible. Pt has had Bilateral venous laser treatment SFJ is competent and measures 1.18 x 1.21 cm. many years ago. GSV above knee is INCOMPETENT for greater Rt GSV is not visualized mid to distal thigh. than 0.5 seconds. RT Verifying Machine Operator located 23 cm from the medial GSV at knee measures .63 x .64 cm. malleolus is INCOMPETENT for greater than .5 GSV below knee is INCOMPETENT for greater sec. than 0.5 seconds. SFJ is INCOMPETENT and measures 1.18 x 1.20 ASV mid calf is INCOMPETENT for greater than cm. 0.5 seconds and measures .33 x .33 cm. ASV mid thigh is INCOMPETENT for greater than SSV at junction is INCOMPETENT for greater 0.5 seconds and measures .62 x .63 cm. than 0.5 seconds and measures .32 x .33 cm. GSV at knee measures .8 x .9 cm. GSV below knee is INCOMPETENT for greater than 0.5 seconds. SSV proximal calf is INCOMPETENT for greater than 0.5 seconds and measures .30 x .31 cm. Procedure Exam performed in department. A preliminary report was called and/or faxed to [facility]. VL/Venous Duplex US - [place] Extrem Interpretation Summary Deep veins of the lower extremities are bilaterally patent and compressible seg mentally. There is no evidence of deep vein thrombosis on either side. Valvular competence appears in tact within the proximal deep venous systems bilaterally. The right sapheno-femoral junction is incompetent . The left sapheno-femoral junction is competent . The right great saphenous vein is absent from the mid- to distal thigh. The right great saphenous vein is patent and incompetent below the knee. The left great saphenous vein appears segmentally incompetent. Small saphenous veins are patent and incompetent bilaterally. The accessory saphenous vein in the right mid-thigh is incompetent. The accessory saphenous vein in the left mid-calf is incompetent. An incompetent pe rforator vein is noted in the right calf, located 23 centimeters proximal to the right medial ma lleolus. Ordering Physician: Giovanna Anton Referring Physician: LEXIE HALL Performed By: Tori Harding, DANNY, RVT
[2021-08-19 09:16] VITALS: TEMP 36.6
--- NOTE | 2021-08-19 10:32 | PCM.WC.PN ---
History of Present Illness Date of Service: 08/19/21 Chief Complaint: Follow-up right lower leg puncture wound nonhealing since February or March History of Wound: 66-year-old white female with a history of peripheral vascular disease and has had several venous repairs on the right lower leg , unable to stand because was up in her right groin. So she has constant pain and some swelling on and off in her lower extremities. She was hunting for mushrooms at the time that she was stuck by a briar rich[place] Hand she had 2 puncture wounds one healed and one did not. She has been using cortisone cream on it per her doctor's orders. Progress of Wound: Still has a puncture wound with redness noted. Very small and depth is only 0.2 now. States there is no more pain. Has developed some erythema around the wound wondering if it is irritation from the Adaptic, stopped using Adaptic looks better. Went over her arterial brachial studies her arteries are fine it is all in her venous flow she has a lot of blockages in all of her GSF and her SGF Bilateral lower legs are about the same for the blockages worse on the right than on the left. Patient states that is why she has so much pain in her lower legs and edema. That is why were probably not healing fast is because of the circulatory problem. We will refer her to Dr. Fischer for further evaluation in the meantime we will continue to try to closer Subjective Subjective Patient very happy with it starting to close finally with using Promogran Objective Data Objective Data We will continue using Promogran to the dotted area depth is much better only used a curette #1 to clean it out looks very good Vital Signs: Vital Signs Temp Pulse BP 97.9 F 62 160/70 H 08/19/21 09:16 07/24/21 00:37 07/24/21 00:37 Lab / Micro Data Attestation: I reviewed the patient's lab results. Physical Exam Const oriented x3 General Appearance: cooperative Exam Limitations: no limitations Resp normal respiratory effort Effort and Inspection: able to speak in complete sentences Auscultation: clear to auscultation bilaterally Cardio regular rate and regular rhythm Palpation: normal PMI Rate: regular rate Rhythm: regular rhythm GI Auscultation: normoactive bowel sounds Palpation: soft and no hepatosplenomegaly Extremity normal to inspection General Extremity: normal exam except as noted Skin Trauma: puncture Neuro oriented x3 Psych Appearance: grossly normal Speech: normal speech Thought Content: normal thought content Judgement: judgement good Debridement Note Debridement Note Wound debrided: Right medial ankle puncture Type of Debridement: Excisional debridement Anesthesia Used: 5% Lidocaine Gel Depth: in the subcutaneous layer Percentage of wound debrided: 100 Instrument Used: - (1 mm curette) Tissue Removed: Fibrin and slough Severity: Limited To Skin Breakdown Bleeding Controlled with: Pressure Patient tolerated procedure: Patient tolerated procedure well Post-Debridement Measurements and Additional Note: Post-Debridement Measurements/Treatment - Nurse 1 - General Ulcer Assessment Start: 07/29/21 08:55 Freq: Status: Active Protocol: [email or web address] Activity Type Activity Date Activity User E-Sign Co-Sign Detail Recorded Client Recorded Date Recorded By Document 07/29/21 08:56 AK [id number] 07/29/21 09:01 AK Document 08/05/21 09:06 AK [id number] 08/05/21 09:10 AK Document 08/19/21 09:16 KR [id number] 08/19/21 09:17 KR 07/29/21 08/05/21 08/19/21 08:56 09:06 09:16 - Today's Visit Information Type of service Follow-up Visit Follow-up Visit Follow-up Visit (Physician/[employer]ICE [employer]IDENT [employer] (Physician/[employer] (Physician/[employer] ) ) ) Arrival Mode Ambulatory Ambulatory Ambulatory Patient Identification Verified (Name & Yes Yes Yes ) Patient Requires Transmission-Based No Precautions Safety Precautions NA NA Vital Signs Temperature (97.8 F-99.1 F) 97.1 F L 97.2 F L 97.9 F Temperature Source Temporal Oral Temporal History Since Last Visit- (Skip if this is Patient's initial visit) Have you changed medications since your No No No last visit? Any new allergies or adverse reactions No No No Had a fall/change in ADL's that may No No No increase risk of falls Signs or symptoms of abuse and/or No No No neglect since last visit Have you been in the hospital since your No No No last visit? Has dressing in place as prescribed Yes Yes Yes Has compression in place as prescribed N/A Yes N/A Has offloadiing in place as prescribed N/A N/A Experienced any changes in pain level or No No No management Left Footwear Regular Shoe Regular Shoe Regular Shoe Right Footwear Regular Shoe Regular Shoe Regular Shoe Pain Scale: 0-10 Numeric Is Patient Pain Free? Yes WC - Nurse 1 - General Ulcer Measurement Start: 07/29/21 08:55 Freq: Status: Active Protocol: Activity Type Activity Date Activity User E-Sign Co-Sign Detail Recorded Client Recorded Date Recorded By Document 07/29/21 08:56 AK [id number] 07/29/21 09:01 AK Document 08/05/21 09:06 AK [id number] 08/05/21 09:10 AK Document 08/19/21 09:16 KR [id number] 08/19/21 09:17 KR 07/29/21 08/05/21 08/19/21 08:56 09:06 09:16 Wound Center Nurse 1 #1 Right Medial Ankle -Combined with other wound No No -Current Size (cm) - Length 0.1 0.2 0.2 -Current Size (cm) - Width 0.1 0.2 0.2 -Current Size (cm) - Depth 0.1 0.2 0.2 -Total Square Cm 0.01 0.04 0.04 -Photo Taken No No -Epithelialization None Present -Tunneling No No -Undermining/Tunneling No No -Circular Undermining No No -Change in Wound Grade/Stage No No -Exudate Amt None Present Medium Small -Exudate Type Serosanguineous Serosanguineous -Wound Margin Distinct, Distinct, Distinct, Outline Outline Outline Attached Attached Attached -Granulation Amt None Present (0 Small (1-33%) %) -Granulation Quality N/A Red -Slough/Fibrin No Yes -Necrosis Amt None Present (0 Medium (34-66%) Small (1-33%) %) -Necrotic Tissue Type Adherent Slough Adherent Slough -Structure Exposed N/A N/A -Texture (Ana-wound Skin Appearance) No Abnormality, Assessed, Assessed, Assessed Scarring Scarring -Moisture (Ana-wound Skin Appearance) No Abnormality, No Abnormality, No Abnormality, Assessed Assessed Assessed -Color (Ana-wound Skin Appearance) No Abnormality, Assessed, No Abnormality, Assessed Hemosiderin Assessed Staining -Temperature (Ana-wound Skin No Abnormality No Abnormality No Abnormality Appearance) (Pt Warm) (Pt Warm) (Pt Warm) -Tenderness on Palpation (Ana-wound No No No Skin Appearance) -Ulcer Cleansing Rinsed/ Rinsed/ Rinsed/ Irrigated with Irrigated with Irrigated with Saline Saline Saline -Foul Odor after Cleansing No No No -Anesthetic Used 5% Lidocaine 5% Lidocaine 4% Lidocaine Gel Gel Solution Lower Limb Edema Present No Right Calf (cm) 46.5 Right Ankle (cm) 22 WC - Nurse 2 - General Ulcer CM Notes Start: 07/29/21 08:55 Freq: Status: Active Protocol: Activity Type Activity Date Activity User E-Sign Co-Sign Detail Recorded Client Recorded Date Recorded By Document 07/29/21 09:13 MW [id number] 07/29/21 09:14 MW Document 08/05/21 09:34 MW [id number] 08/05/21 09:38 MW Document 08/19/21 09:49 MW [id number] 08/19/21 09:52 MW 07/29/21 08/05/21 08/19/21 09:13 09:34 09:49 Wound Center Nurse 2 #1 Right Medial Ankle -Time 09:13 09:37 09:49 -Correct Patient Yes Yes Yes -Correct Side, Site, Position Yes Yes Yes -Correct Procedure Yes Yes Yes -Procedure Performed Yes Yes Yes -Type of Procedure Debridement Debridement Debridement -Clinical Debridement Subcutaneous Subcutaneous Subcutaneous -Tissue Removed Subcutaneous Subcutaneous Subcutaneous -Post Debridement (cm) - Length 0.3 0.3 0.2 -Post Debridement (cm) - Width 0.3 0.3 0.2 -Post Debridement (cm) - Depth 0.2 0.2 0.1 -Total Square (Post) (cm) 0.09 0.09 0.04 -Area of Debridement (cm) - Length 0.3 0.3 0.2 -Area of Debridement (cm) - Width 0.3 0.3 0.2 -Total Square (Area) (cm) 0.09 0.09 0.04 -Tunneling No No No -Undermining/Tunneling No No No -Circular Undermining No No No -Wound/Ulcer Outcome Not Healed Not Healed Not Healed -Ulcer Cleansing Rinsed/ Rinsed/ Rinsed/ Irrigated with Irrigated with Irrigated with Saline Saline Saline -Foul Odor after Cleansing No No No -Bioengineered Tissue No No No -Bleeding Controlled with Pressure Pressure Pressure -Offloading No No No -Treatment Response Procedure Procedure Procedure Tolerated Well Tolerated Well Tolerated Well -Debridement - Subq, 1st 20sq cm Yes Yes Yes Pain Scale: 0-10 Numeric Is Patient Pain Free? Yes Yes WC - Nurse 3 - General Ulcer D/C NN Start: 07/29/21 08:55 Freq: Status: Active Protocol: Activity Type Activity Date Activity User E-Sign Co-Sign Detail Recorded Client Recorded Date Recorded By Document 07/29/21 09:17 MW [id number] 07/29/21 09:18 MW Document 08/05/21 09:42 AK [id number] 08/05/21 09:44 AK Document 08/19/21 10:08 AK [id number] 08/19/21 10:09 AK 07/29/21 08/05/21 08/19/21 09:17 09:42 10:08 Wound Care Nurse 3 #1 Right Medial Ankle -Ulcer Cleansing Rinsed/ Rinsed/ Rinsed/ Irrigated with Irrigated with Irrigated with Saline Saline Saline -Foul Odor after Cleansing No No -Negative Pressure Wound Therapy N/A N/A -Primary Dressing Applied Promogran Promogran Promogran -Primary Dressing Covered/Secured with Dry Gauze, Dry Gauze, Secured with Secured with Secured with Tape Tape Tape -Promogran 0 1 0 Right -Lotion applied to leg before No compression wrap -Stockings Yes -Other OWN Left -Lotion applied to leg before No compression wrap -Stockings Yes -Other OWN WC - Visit Discharge Discharge Condition Stable Stable Stable Ambulatory Status Ambulatory Ambulatory Ambulatory Transportation Private Auto Private Auto Private Auto Medication Reconcilliation completed & No Yes Yes provided to patient/care provider Clinical Summary of Care Provided Yes Yes Yes Assessment/Plan Assessment/Plan (1) Infected wound: CODE(S): T14.8XXA - Other injury of unspecified body region, initial encounter; L08.9 - Local infection of the skin and subcutaneous tissue, unspecified (2) Puncture wound: CODE(S): T14.8XXA - Other injury of unspecified body region, initial encounter PLAN: Wash leg with antibacterial soap pack small wound with Promogran top with gauze dressing and Olga every day Follow-up in 1 week (3) Peripheral vascular disease: CODE(S): I73.9 - Peripheral vascular disease, unspecified PLAN: Start wearing the pression stockings that were prescribed to the right leg (4) Edema of right lower leg: CODE(S): R60.0 - Localized edema PLAN: Referred to Dr. Fischer for further studies and exam and treatment
== END 2021-08-23 23:59 ==
LOC: WC 09:00
PROVIDERS: PCP Family Medicine; Referring Provider Nurse Practitioner; Visit Provider Nurse Practitioner
DX: S81.831A Puncture wound without foreign body, right lower leg, initial encounter (principal); W60.XXXA Contact with nonvenomous plant thorns and spines and sharp leaves, initial encounter; Y93.89 Activity, other specified; Y92.9 Unspecified place or not applicable; M79.89 Other specified soft tissue disorders; I73.9 Peripheral vascular disease, unspecified; L08.9 Local infection of the skin and subcutaneous tissue, unspecified
CPT/HCPCS: 11042; 93923; 93970

== ENCOUNTER 2021-09-16 08:15 | Outpatient (RCR) | payer MEDICARE, BC, SELFPAY ==
[2021-08-24 00:28] VITALS: BP 160/70; PULSE 62; TEMP 36.6
[2021-08-26 09:03] VITALS: TEMP 35.7
--- NOTE | 2021-08-26 09:42 | PN.PCM_ITS ---
History of Present Illness Date of Service: 08/26/21 Chief Complaint: Follow-up right lower leg puncture wound nonhealing since February or March History of Wound: 66-year-old white female with a history of peripheral vascular disease and has had several venous repairs on the right lower leg , unable to st and because was up in her right groin. So she has constant pain and some swelling on and off in her lower extremities. She was hunting for mushrooms at the time that she was stuck by a briar [employer] Hand she had 2 puncture wounds one healed and one did not. She has been using cortisone cream on it per her doctor's orders. Progress of Wound: Wound is staying about the same no change still open does have an appoint with Dr. Fischer next Tuesday and I think working to see much changes until he gets vascular reopened. Subjective Subjective Patient is feeling less it is more red around the wound not using any Adaptic. Complains of itching Objective Data Objective Data Wound is approximately the same size no change we will continue using Promogran and waiting for follow-up with Dr. Fischer to see what surgical intervention he can use. We will follow up in 2 weeks Vital Signs: Vital Signs Temp Pulse BP 96.2 F L 62 160/70 H 08/26/21 09:03 08/24/21 00:28 08/24/21 00:28 Lab / Micro Data Attestation: I reviewed the patient's lab results. Physical Exam Const oriented x3 General Appearance: cooperative Exam Limitations: no limitations Resp normal respiratory effort Effort and Inspection: able to speak in complete sentences Auscultation: clear to auscultation bilaterally Cardio regular rate and regular rhythm Palpation: normal PMI Rate: regular rate Rhythm: regular rhythm GI Auscultation: normoactive bowel sounds Palpation: soft and no hepatosplenomegaly Extremity normal to inspection General Extremity: normal exam except as noted Skin Trauma: puncture Neuro oriented x3 Psych Appearance: grossly normal Speech: normal speech Thought Content: normal thought content Judgement: judgement good Debridement Note Debridement Note Wound debrided: Right inner ankle Laterality: Right Type of Debridement: Excisional debridement Anesthesia Used: 5% Lidocaine Gel Depth: Down to and including healthy tissue Percentage of wound debrided: 100 Instrument Used: - (Using a #1 curette) Tissue Removed: Fibrin Severity: Limited To Skin Breakdown Amount of bleeding with debridement: None Bleeding Controlled with: Pressure Patient tolerated procedure: Patient tolerated procedure well Post-Debridement Measurements and Additional Note: Post-Debridement Measurements/Treatment MARVIN - Nurse 1 - General Ulcer Assessment Start: 08/26/21 09:03 Freq: Status: Active Protocol: NOHEMI Activity Type Activity Date Activity User E-Sign Co-Sign Detail Recorded Client Recorded Date Recorded By Document 08/26/21 09:03 BECKY [id number] 08/26/21 09:06 BECKY 08/26/21 09:03 WC - Today's Visit Information Type of service 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 Any new allergies or adverse reactions No Had a fall/change in ADL's that may No increase risk of falls Signs or symptoms of abuse and/or No neglect since last visit Have you been in the hospital since your No last visit? Has dressing in place as prescribed Yes Has compression in place as prescribed Yes Has offloadiing in place as prescribed N/A Experienced any changes in pain level or No management Left Footwear Regular Shoe Right Footwear Regular Shoe MARVIN - Nurse 1 - General Ulcer Measurement Start: 08/26/21 09:03 Freq: Status: Active Protocol: Activity Type Activity Date Activity User E-Sign Co-Sign Detail Recorded Client Recorded Date Recorded By Document 08/26/21 09:03 BECKY [id number] 08/26/21 09:06 BECKY 08/26/21 09:03 Wound Center Nurse 1 #1 Right Medial Ankle -Combined with other wound No -Current Size (cm) - Length 0.1 -Current Size (cm) - Width 0.1 -Current Size (cm) - Depth 0.2 -Total Square Cm 0.01 -Photo Taken No -Epithelialization None Present -Tunneling No -Undermining/Tunneling No -Circular Undermining No -Classification - Thickness Partial Thickness -Exudate Amt Medium -Exudate Type Serosanguineous -Wound Margin Distinct, Outline Attached -Granulation Amt Medium (34-66%) -Slough/Fibrin Yes -Necrosis Amt Medium (34-66%) -Necrotic Tissue Type Adherent Slough -Structure Exposed N/A -Texture (Ana-wound Skin Appearance) Assessed, Crepitus, Scarring -Moisture (Ana-wound Skin Appearance) Assessed -Color (Ana-wound Skin Appearance) Assessed, Erythema -Temperature (Ana-wound Skin No Abnormality Appearance) (Pt Warm) -Tenderness on Palpation (Ana-wound No Skin Appearance) -Ulcer Cleansing Rinsed/ Irrigated with Saline -Foul Odor after Cleansing No -Anesthetic Used 5% Lidocaine Gel Lower Limb Edema Present No WC - Nurse 2 - General Ulcer CM Notes Start: 08/26/21 09:03 Freq: Status: Active Protocol: Activity Type Activity Date Activity User E-Sign Co-Sign Detail Recorded Client Recorded Date Recorded By Document 08/26/21 09:12 MW [id number] 08/26/21 09:12 MW 08/26/21 09:12 Wound Center Nurse 2 #1 Right Medial Ankle -Time 09:12 -Correct Patient Yes -Correct Side, Site, Position Yes -Correct Procedure Yes -Procedure Performed Yes -Type of Procedure Debridement -Clinical Debridement Subcutaneous -Tissue Removed Subcutaneous -Post Debridement (cm) - Length 0.2 -Post Debridement (cm) - Width 0.2 -Post Debridement (cm) - Depth 0.2 -Total Square (Post) (cm) 0.04 -Area of Debridement (cm) - Length 0.2 -Area of Debridement (cm) - Width 0.2 -Total Square (Area) (cm) 0.04 -Tunneling No -Undermining/Tunneling No -Circular Undermining No -Wound/Ulcer Outcome Not Healed -Ulcer Cleansing Rinsed/ Irrigated with Saline -Foul Odor after Cleansing No -Bioengineered Tissue No -Bleeding Controlled with Pressure -Offloading No -Debridement - Subq, 1st 20sq cm Yes Pain Scale: 0-10 Numeric Is Patient Pain Free? Yes WC - Nurse 3 - General Ulcer D/C NN Start: 08/26/21 09:03 Freq: Status: Active Protocol: Activity Type Activity Date Activity User E-Sign Co-Sign Detail Recorded Client Recorded Date Recorded By Document 08/26/21 09:15 KR [id number] 08/26/21 09:16 KR 08/26/21 09:15 Wound Care Nurse 3 #1 Right Medial Ankle -Primary Dressing Covered/Secured with Dry Gauze, Secured with Tape Pain Scale: 0-10 Numeric Is Patient Pain Free? Yes WC - Visit Discharge Discharge Condition Stable Ambulatory Status Ambulatory Transportation Private Auto Assessment/Plan Assessment/Plan (1) Infected wound: CODE(S): T14.8XXA - Other injury of unspecified body region, initial encounter; L08.9 - Local infection of the skin and subcutaneous tissue, unspecified (2) Puncture wound: CODE(S): T14.8XXA - Other injury of unspecified body region, initial encounter PLAN: Wash leg with antibacterial soap pack small wound with Promogran top with gauze dressing and Olga every day Follow-up in 1 week (3) Peripheral vascular disease: CODE(S): I73.9 - Peripheral vascular disease, unspecified PLAN: Start wearing the pression stockings that were prescribed to the right leg (4) Edema of right lower leg: CODE(S): R60.0 - Localized edema PLAN: Referred to Dr. Fischer for further studies and exam and treatment. Appointment next Tuesday
[2021-09-09 08:56] VITALS: TEMP 36.3
--- NOTE | 2021-09-09 10:39 | PCM.WC.PN ---
History of Present Illness Date of Service: 09/09/21 Chief Complaint: Follow-up right lower leg puncture wound nonhealing since February or March History of Wound: 66-year-old white female with a history of peripheral vascular disease and has had several venous repairs on the right lower leg , unable to stand because was up in her right groin. So she has constant pain and some swelling on and off in her lower extremities. She was hunting for mushrooms at the time that she was stuck by a briar richardson Hand she had 2 puncture wounds one healed and one did not. She has been using cortisone cream on it per her doctor's orders. Progress of Wound: Wound is staying about the same may be a little worse this week patient states that it is draining serous fluid when she walks itches like crazy. No change still open. Met with Dr. Fischer last Tuesday and he on September 23 is going to do a procedure to open up her vessels. We will try changing up on her treatment and change it to Aquacel extra and pack it better still not use any Adaptic. The wound is pretty moist has like a erythematous angry edging around the puncture wound. Then she has developed a another small round raised area inferior to the wound which I think is more like a fungal or something else she is going to try antifungal medication on it. Subjective Subjective Patient's not happy that things are not progressing better but I think after her procedure hopefully things will be able to heal we did reculture her today Objective Data Objective Data Cultures were obtained today from the wound it had some whitish-yellow discharge from the center that was debrided out the wound opening looks angry red with some very erythematous cobbled type skin around it. We did change up on her dressing change to the Aquacel extra to pack down in there then the Promogran will be held. Vital Signs: Vital Signs Temp Pulse BP 97.3 F L 62 160/70 H 09/09/21 08:56 08/24/21 00:28 08/24/21 00:28 Physical Exam Const oriented x3 General Appearance: cooperative Exam Limitations: no limitations HEENT normocephalic Head and Scalp: normal to inspection Face and Sinus: normal facial exam Nose: external nose normal General Ear: hearing grossly impaired External Ear: external ears normal Mouth: oral and palatal mucosa normal Eyes PERRL General Eye: normal appearance of both eyes Neck full ROM General: normal visual inspection Resp normal respiratory effort Effort and Inspection: able to speak in complete sentences Auscultation: clear to auscultation bilaterally Cardio regular rate and regular rhythm Palpation: normal PMI Rate: regular rate Rhythm: regular rhythm GI Auscultation: normoactive bowel sounds Palpation: soft and no hepatosplenomegaly external exam normal Back/Spine Cervical Spine: cervical ROM normal Thoracic Spine / Upper Back: normal to inspection Lumbar Spine / Lower Back: normal to inspection Extremity normal to inspection General Extremity: normal exam except as noted Skin no rashes or lesions noted Neuro oriented x3 Psych Appearance: grossly normal Speech: normal speech Thought Content: normal thought content Judgement: judgement good Debridement Note Debridement Note Wound debrided: Left medial ankle puncture wound from trauma Type of Debridement: Excisional debridement Anesthesia Used: 5% Lidocaine Gel Depth: Down to and including healthy tissue and in the subcutaneous layer Percentage of wound debrided: 100 Instrument Used: 3mm curette Tissue Removed: Slough and fibrin Severity: Limited To Skin Breakdown Amount of bleeding with debridement: Mild Bleeding Controlled with: Compression and gauze Patient tolerated procedure: Patient tolerated procedure well Post-Debridement Measurements and Additional Note: Post-Debridement Measurements/Treatment - Nurse 1 - General Ulcer Assessment Start: 08/26/21 09:03 Freq: Status: Active Protocol: NOHEMI Activity Type Activity Date Activity User E-Sign Co-Sign Detail Recorded Client Recorded Date Recorded By Document 08/26/21 09:03 MN [id number] 08/26/21 09:06 MN Document 09/09/21 08:56 [facility] [id number] 09/09/21 09:00 [facility] 08/26/21 09/09/21 09:03 08:56 - Today's Visit Information Type of service Follow-up Visit Follow-up Visit (Physician/LUMPIA WRAPPER MAKER (Physician/LUMPIA WRAPPER MAKER ) ) Arrival Mode Ambulatory Ambulatory Transfer Assistance None Patient Identification Verified (Name & Yes Yes ) Patient Requires Transmission-Based No No Precautions Vital Signs Temperature (97.8 F-99.1 F) 96.2 F L 97.3 F L Temperature Source Temporal Temporal Comment refused vitals History Since Last Visit- (Skip if this is Patient's initial visit) Have you changed medications since your No No last visit? Any new allergies or adverse reactions No No Had a fall/change in ADL's that may No No increase risk of falls Signs or symptoms of abuse and/or No No neglect since last visit Have you been in the hospital since your No No last visit? Has dressing in place as prescribed Yes Yes Has compression in place as prescribed Yes No Has offloadiing in place as prescribed N/A N/A Experienced any changes in pain level or No No management Left Footwear Regular Shoe Regular Shoe Right Footwear Regular Shoe Regular Shoe Pain Scale: 0-10 Numeric Is Patient Pain Free? Yes WC - Nurse 1 - General Ulcer Measurement Start: 08/26/21 09:03 Freq: Status: Active Protocol: Activity Type Activity Date Activity User E-Sign Co-Sign Detail Recorded Client Recorded Date Recorded By Document 08/26/21 09:03 MN [id number] 08/26/21 09:06 MN Document 09/09/21 08:56 [facility] [id number] 09/09/21 09:00 [facility] 08/26/21 09/09/21 09:03 08:56 Wound Center Nurse 1 #1 Right Medial Ankle -Combined with other wound No No -Current Size (cm) - Length 0.1 1 -Current Size (cm) - Width 0.1 0.9 -Current Size (cm) - Depth 0.2 0.1 -Total Square Cm 0.01 0.9 -Photo Taken No No -Epithelialization None Present None Present -Tunneling No No -Undermining/Tunneling No No -Circular Undermining No No -Classification - Thickness Partial Thickness -Exudate Amt Medium Medium -Exudate Type Serosanguineous Serosanguineous -Wound Margin Distinct, Flat & Intact Outline Attached -Granulation Amt Medium (34-66%) Large (67-100%) -Granulation Quality Red -Slough/Fibrin Yes Yes -Necrosis Amt Medium (34-66%) Small (1-33%) -Necrotic Tissue Type Adherent Slough Adherent Slough -Structure Exposed N/A -Texture (Ana-wound Skin Appearance) Assessed, Assessed, Crepitus, Scarring Scarring -Moisture (Ana-wound Skin Appearance) Assessed Assessed -Color (Ana-wound Skin Appearance) Assessed, Assessed Erythema -Temperature (Ana-wound Skin No Abnormality No Abnormality Appearance) (Pt Warm) (Pt Warm) -Tenderness on Palpation (Ana-wound No No Skin Appearance) -Ulcer Cleansing Rinsed/ Rinsed/ Irrigated with Irrigated with Saline Saline -Foul Odor after Cleansing No No -Anesthetic Used 5% Lidocaine 5% Lidocaine Gel Gel Lower Limb Edema Present No Yes Right Calf (cm) 41.9 Right Ankle (cm) 21.5 WC - Nurse 2 - General Ulcer CM Notes Start: 08/26/21 09:03 Freq: Status: Active Protocol: Activity Type Activity Date Activity User E-Sign Co-Sign Detail Recorded Client Recorded Date Recorded By Document 08/26/21 09:12 MW [id number] 08/26/21 09:12 MW Document 09/09/21 09:06 MW [id number] 09/09/21 09:13 MW 08/26/21 09/09/21 09:12 09:06 Wound Center Nurse 2 #1 Right Medial Ankle -Time 09:12 09:11 -Correct Patient Yes Yes -Correct Side, Site, Position Yes Yes -Correct Procedure Yes Yes -Procedure Performed Yes Yes -Type of Procedure Debridement Debridement -Clinical Debridement Subcutaneous Subcutaneous -Tissue Removed Subcutaneous Subcutaneous -Post Debridement (cm) - Length 0.2 0.2 -Post Debridement (cm) - Width 0.2 0.4 -Post Debridement (cm) - Depth 0.2 0.2 -Total Square (Post) (cm) 0.04 0.08 -Area of Debridement (cm) - Length 0.2 0.2 -Area of Debridement (cm) - Width 0.2 0.4 -Total Square (Area) (cm) 0.04 0.08 -Tunneling No No -Undermining/Tunneling No No -Circular Undermining No No -Wound/Ulcer Outcome Not Healed Not Healed -Ulcer Cleansing Rinsed/ Rinsed/ Irrigated with Irrigated with Saline Saline -Foul Odor after Cleansing No No -Bioengineered Tissue No No -Bleeding Controlled with Pressure Pressure -Offloading No No -Treatment Response Procedure Tolerated Well -Debridement - Subq, 1st 20sq cm Yes Yes Pain Scale: 0-10 Numeric Is Patient Pain Free? Yes Yes - Nurse 3 - General Ulcer D/C NN Start: 08/26/21 09:03 Freq: Status: Active Protocol: Activity Type Activity Date Activity User E-Sign Co-Sign Detail Recorded Client Recorded Date Recorded By Document 08/26/21 09:15 KR [id number] 08/26/21 09:16 KEVIN 08/26/21 09:15 Wound Care Nurse 3 #1 Right Medial Ankle -Primary Dressing Covered/Secured with Dry Gauze, Secured with Tape Pain Scale: 0-10 Numeric Is Patient Pain Free? Yes WC - Visit Discharge Discharge Condition Stable Ambulatory Status Ambulatory Transportation Private Auto Assessment/Plan Assessment/Plan (1) Infected wound: CODE(S): T14.8XXA - Other injury of unspecified body region, initial encounter; L08.9 - Local infection of the skin and subcutaneous tissue, unspecified PLAN: Cultures obtained (2) Puncture wound: CODE(S): T14.8XXA - Other injury of unspecified body region, initial encounter PLAN: Wash leg with antibacterial soap pack small wound with Aquacel extra top with gauze dressing and Olga every day Follow-up in 1 week (3) Peripheral vascular disease: CODE(S): I73.9 - Peripheral vascular disease, unspecified PLAN: Start wearing the pression stockings that were prescribed to the right leg (4) Edema of right lower leg: CODE(S): R60.0 - Localized edema PLAN: Appointment with Dr. Fischer for September 23 for procedure
[2021-09-16 08:21] VITALS: TEMP 36.2
--- NOTE | 2021-09-16 10:08 | PN.PCM_ITS ---
History of Present Illness Date of Service: 09/16/21 Chief Complaint: Follow-up right lower leg puncture wound nonhealing since February or March History of Wound: 66-year-old white female with a history of peripheral vascular disease and has had several venous repairs on the right lower leg , unable to st and because was up in her right groin. So she has constant pain and some swelling on and off in her lower extremities. She was hunting for mushrooms at the time that she was stuck by a briar [employer] she had 2 puncture wounds one healed and one did not. She has been using cortisone cream on it per her doctor's orders. Progress of Wound: Wound is staying about the same . No change still open. Met with Dr. Fischer, he is going to do a procedure to open up her vessels on the September 30 and . We will follow-up with her on the She likes using the Promogran she feels she can get down in there better we will go back to Promogran. Subjective Subjective She just complains of itches a lot Objective Data Objective Data Basically the same a small puncture with erythematous tissue around the edge hoping the procedures will make a big difference in healing Vital Signs: Vital Signs Temp Pulse BP 97.2 F L 62 160/70 H 09/16/21 08:21 08/24/21 00:28 08/24/21 00:28 Lab / Micro Data Micro: Microbiology 09/09/21 09:10 Wound Abcess - Ankle Gram Stain - Final 09/09/21 09:10 Wound Abcess - Ankle Wound Culture - Final No growth aerobically. 09/09/21 09:10 Wound Abcess - Ankle Anaerobic Culture - Final No growth in 5 days. Physical Exam Const oriented x3 General Appearance: cooperative Exam Limitations: no limitations HEENT normocephalic Head and Scalp: normal to inspection Face and Sinus: normal facial exam Nose: external nose normal General Ear: hearing grossly impaired External Ear: external ears normal Mouth: oral and palatal mucosa normal Eyes PERRL General Eye: normal appearance of both eyes Neck full ROM General: normal visual inspection Resp normal respiratory effort Effort and Inspection: able to speak in complete sentences Auscultation: clear to auscultation bilaterally Cardio regular rate and regular rhythm Palpation: normal PMI Rate: regular rate Rhythm: regular rhythm GI Auscultation: normoactive bowel sounds Palpation: soft and no hepatosplenomegaly external exam normal Back/Spine Cervical Spine: cervical ROM normal Thoracic Spine / Upper Back: normal to inspection Lumbar Spine / Lower Back: normal to inspection Extremity normal to inspection General Extremity: normal exam except as noted Skin no rashes or lesions noted Neuro oriented x3 Psych Appearance: grossly normal Speech: normal speech Thought Content: normal thought content Judgement: judgement good Debridement Note Debridement Note Wound debrided: Right medial ankle Type of Debridement: Excisional debridement Anesthesia Used: 5% Lidocaine Gel Depth: Down to and including healthy tissue Percentage of wound debrided: 100 Instrument Used: 3mm curette Severity: Limited To Skin Breakdown Amount of bleeding with debridement: None Bleeding Controlled with: Pressure Patient tolerated procedure: Patient tolerated procedure well Post-Debridement Measurements and Additional Note: Post-Debridement Measurements/Treatment - Nurse 1 - General Ulcer Assessment Start: 08/26/21 09:03 Freq: Status: Active Protocol: NOHEMI Activity Type Activity Date Activity User E-Sign Co-Sign Detail Recorded Client Recorded Date Recorded By Document 08/26/21 09:03 MS [id number] 08/26/21 09:06 MS Document 09/09/21 08:56 [facility] [id number] 09/09/21 09:00 BM Document 09/16/21 08:21 KR [id number] 09/16/21 08:22 KR 08/26/21 09/09/21 09/16/21 09:03 08:56 08:21 - Today's Visit Information Type of service Follow-up Visit Follow-up Visit Follow-up Visit (Physician/FAMILY PRACTICE PHYSICIAN ASSISTANT (Physician/FAMILY PRACTICE PHYSICIAN ASSISTANT (Physician/FAMILY PRACTICE PHYSICIAN ASSISTANT ) ) ) Arrival Mode Ambulatory Ambulatory Ambulatory Transfer Assistance None None Patient Identification Verified (Name & Yes Yes Yes ) Patient Requires Transmission-Based No No No Precautions Vital Signs Temperature (97.8 F-99.1 F) 96.2 F L 97.3 F L 97.2 F L Temperature Source Temporal Temporal Temporal Comment refused vitals pt refuses vitals History Since Last Visit- (Skip if this is Patient's initial visit) Have you changed medications since your No No No last visit? Any new allergies or adverse reactions No No No Had a fall/change in ADL's that may No No No increase risk of falls Signs or symptoms of abuse and/or No No No neglect since last visit Have you been in the hospital since your No No No last visit? Has dressing in place as prescribed Yes Yes Yes Has compression in place as prescribed Yes No No Has offloadiing in place as prescribed N/A N/A N/A Experienced any changes in pain level or No No No management Left Footwear Regular Shoe Regular Shoe Regular Shoe Right Footwear Regular Shoe Regular Shoe Regular Shoe Pain Scale: 0-10 Numeric Is Patient Pain Free? Yes Yes WC - Nurse 1 - General Ulcer Measurement Start: 08/26/21 09:03 Freq: Status: Active Protocol: Activity Type Activity Date Activity User E-Sign Co-Sign Detail Recorded Client Recorded Date Recorded By Document 08/26/21 09:03 MS [id number] 08/26/21 09:06 MS Document 09/09/21 08:56 [facility] [id number] 09/09/21 09:00 BM Document 09/16/21 08:21 KR [id number] 09/16/21 08:22 KR 08/26/21 09/09/21 09/16/21 09:03 08:56 08:21 Wound Center Nurse 1 #1 Right Medial Ankle -Combined with other wound No No No -Current Size (cm) - Length 0.1 1 0.1 -Current Size (cm) - Width 0.1 0.9 0.2 -Current Size (cm) - Depth 0.2 0.1 0.1 -Total Square Cm 0.01 0.9 0.02 -Photo Taken No No No -Epithelialization None Present None Present Small 1-33% -Tunneling No No No -Undermining/Tunneling No No No -Circular Undermining No No No -Classification - Thickness Partial Thickness -Exudate Amt Medium Medium Small -Exudate Type Serosanguineous Serosanguineous Serosanguineous -Wound Margin Distinct, Flat & Intact Flat & Intact Outline Attached -Granulation Amt Medium (34-66%) Large (67-100%) Large (67-100%) -Granulation Quality Red Red -Slough/Fibrin Yes Yes Yes -Necrosis Amt Medium (34-66%) Small (1-33%) Small (1-33%) -Necrotic Tissue Type Adherent Slough Adherent Slough Adherent Slough -Structure Exposed N/A -Texture (Ana-wound Skin Appearance) Assessed, Assessed, Assessed, Crepitus, Scarring Scarring Scarring -Moisture (Ana-wound Skin Appearance) Assessed Assessed Assessed -Color (Ana-wound Skin Appearance) Assessed, Assessed Assessed, Erythema Erythema -Temperature (Ana-wound Skin No Abnormality No Abnormality No Abnormality Appearance) (Pt Warm) (Pt Warm) (Pt Warm) -Tenderness on Palpation (Ana-wound No No No Skin Appearance) -Ulcer Cleansing Rinsed/ Rinsed/ Rinsed/ Irrigated with Irrigated with Irrigated with Saline Saline Saline -Foul Odor after Cleansing No No No -Anesthetic Used 5% Lidocaine 5% Lidocaine 5% Lidocaine Gel Gel Gel Lower Limb Edema Present No Yes Yes Right Calf (cm) 41.9 47.6 Right Ankle (cm) 21.5 25.1 WC - Nurse 2 - General Ulcer CM Notes Start: 08/26/21 09:03 Freq: Status: Active Protocol: Activity Type Activity Date Activity User E-Sign Co-Sign Detail Recorded Client Recorded Date Recorded By Document 08/26/21 09:12 MW [id number] 08/26/21 09:12 MW Document 09/09/21 09:06 MW [id number] 09/09/21 09:13 MW Document 09/16/21 08:30 MW [id number] 09/16/21 08:33 MW 08/26/21 09/09/21 09/16/21 09:12 09:06 08:30 Wound Center Nurse 2 #1 Right Medial Ankle -Time 09:12 09:11 08:31 -Correct Patient Yes Yes Yes -Correct Side, Site, Position Yes Yes Yes -Correct Procedure Yes Yes Yes -Procedure Performed Yes Yes Yes -Type of Procedure Debridement Debridement Debridement -Clinical Debridement Subcutaneous Subcutaneous Subcutaneous -Tissue Removed Subcutaneous Subcutaneous Subcutaneous -Post Debridement (cm) - Length 0.2 0.2 0.2 -Post Debridement (cm) - Width 0.2 0.4 0.3 -Post Debridement (cm) - Depth 0.2 0.2 0.2 -Total Square (Post) (cm) 0.04 0.08 0.06 -Area of Debridement (cm) - Length 0.2 0.2 0.2 -Area of Debridement (cm) - Width 0.2 0.4 0.3 -Total Square (Area) (cm) 0.04 0.08 0.06 -Tunneling No No No -Undermining/Tunneling No No No -Circular Undermining No No No -Wound/Ulcer Outcome Not Healed Not Healed Not Healed -Ulcer Cleansing Rinsed/ Rinsed/ Rinsed/ Irrigated with Irrigated with Irrigated with Saline Saline Saline -Foul Odor after Cleansing No No No -Bioengineered Tissue No No No -Bleeding Controlled with Pressure Pressure Pressure -Offloading No No No -Treatment Response Procedure Procedure Tolerated Well Tolerated Well -Debridement - Subq, 1st 20sq cm Yes Yes Yes Pain Scale: 0-10 Numeric Is Patient Pain Free? Yes Yes Yes - Nurse 3 - General Ulcer D/C NN Start: 08/26/21 09:03 Freq: Status: Active Protocol: Activity Type Activity Date Activity User E-Sign Co-Sign Detail Recorded Client Recorded Date Recorded By Document 08/26/21 09:15 [id number] 08/26/21 09:16 KR Document 09/16/21 08:58 KR [id number] 09/16/21 09:00 KR 08/26/21 09/16/21 09:15 08:58 Wound Care Nurse 3 #1 Right Medial Ankle -Ulcer Cleansing Rinsed/ Irrigated with Saline -Primary Dressing Applied Promogran -Primary Dressing Covered/Secured with Dry Gauze, Dry Gauze, Secured with Secured with Tape Tape -Promogran 2 Pain Scale: 0-10 Numeric Is Patient Pain Free? Yes Yes - Visit Discharge Discharge Condition Stable Stable Ambulatory Status Ambulatory Ambulatory Transportation Private Auto Private Auto Accompanied by self Assessment/Plan Assessment/Plan (1) Infected wound: CODE(S): T14.8XXA - Other injury of unspecified body region, initial encounter; L08.9 - Local infection of the skin and subcutaneous tissue, unspecified PLAN: Cultures obtained and grew nothing (2) Puncture wound: CODE(S): T14.8XXA - Other injury of unspecified body region, initial encounter PLAN: Wash leg with antibacterial soap pack small wound with Promogran top with gauze dressing and Olga every day Follow-up in 1 week (3) Peripheral vascular disease: CODE(S): I73.9 - Peripheral vascular disease, unspecified PLAN: Start wearing the pression stockings that were prescribed to the right leg (4) Edema of right lower leg: CODE(S): R60.0 - Localized edema PLAN: Appointment with Dr. Fischer for September and for procedure Follow-up on October 21
== END 2021-09-22 23:59 ==
LOC: WC 08:15
PROVIDERS: PCP Family Medicine; Referring Provider Nurse Practitioner; Visit Provider Nurse Practitioner
DX: I73.9 Peripheral vascular disease, unspecified (principal); S81.831A Puncture wound without foreign body, right lower leg, initial encounter; T14.8XXA Other injury of unspecified body region, initial encounter; W60.XXXA Contact with nonvenomous plant thorns and spines and sharp leaves, initial encounter; R60.0 Localized edema; Y93.89 Activity, other specified; Y92.9 Unspecified place or not applicable
CPT/HCPCS: 11042; 87070; 87075; 87205

== ENCOUNTER 2021-10-21 08:15 | Outpatient (RCR) | payer MEDICARE, BC, SELFPAY ==
[2021-09-23 00:32] VITALS: BP 160/70; PULSE 62; TEMP 36.2
[2021-10-21 08:10] VITALS: RESP 20; TEMP 36.1
--- NOTE | 2021-10-21 11:03 | PN.PCM_ITS ---
History of Present Illness Date of Service: 10/21/21 Chief Complaint: Follow-up right lower leg puncture wound nonhealing since February or March History of Wound: 66-year-old white female with a history of peripheral vascular disease and has had several venous repairs on the right lower leg , unable to st and because was up in her right groin. So she has constant pain and some swelling on and off in her lower extremities. She was hunting for mushrooms at the time that she was stuck by a briar richard[employer] Hand she had 2 puncture wounds one healed and one did not. She has been using cortisone cream on it per her doctor's orders. Progress of Wound: She was seen by Dr. Fischer and he performed some kind of ablation to some veins that he wants to consider 10 you doing. The area of the wound now is a small puncture with a raised round edge. He appears to be having allergic reaction to all the tape and the dressing she has a perfect square redness very erythematous and itchy. She has been putting the Promogran on top of the skin and we suggested only inside the skin that she put the Promogran packet in and then cover with a regular dressing is smaller she can and use the non- allergenic tape Subjective Subjective Patient has developed rash on her abdomen and she states that she itches all over. She has a papillary nonraised flat rash on her abdomen. Complains of terrible itchiness not sure what it is coming from. Objective Data Objective Data For the rash I suggested she take Claritin or Zyrtec twice a day also take a Pepcid 20 mg twice a day and she can still take a Benadryl she still itchy at night. The wound itself again is still like a puncture wound with a raised round area up on the skin from where she was punctured by the thorn. Vital Signs: Vital Signs Temp Pulse Resp BP 97 F L 62 20 H 160/70 H 10/21/21 08:10 09/23/21 00:32 10/21/21 08:10 09/23/21 00:32 Lab / Micro Data Attestation: I reviewed the patient's lab results. Physical Exam Const oriented x3 General Appearance: cooperative Exam Limitations: no limitations HEENT normocephalic Head and Scalp: normal to inspection Face and Sinus: normal facial exam Nose: external nose normal General Ear: hearing grossly impaired External Ear: external ears normal Mouth: oral and palatal mucosa normal Eyes PERRL General Eye: normal appearance of both eyes Neck full ROM General: normal visual inspection Resp normal respiratory effort Effort and Inspection: able to speak in complete sentences Auscultation: clear to auscultation bilaterally Cardio regular rate and regular rhythm Palpation: normal PMI Rate: regular rate Rhythm: regular rhythm GI Auscultation: normoactive bowel sounds Palpation: soft and no hepatosplenomegaly external exam normal Back/Spine Cervical Spine: cervical ROM normal Thoracic Spine / Upper Back: normal to inspection Lumbar Spine / Lower Back: normal to inspection Extremity normal to inspection General Extremity: normal exam except as noted Skin no rashes or lesions noted Neuro oriented x3 Psych Appearance: grossly normal Speech: normal speech Thought Content: normal thought content Judgement: judgement good Debridement Note Debridement Note Wound debrided: Right medial ankle Type of Debridement: Excisional debridement Anesthesia Used: 5% Lidocaine Gel Depth: in the subcutaneous layer Percentage of wound debrided: 100 Instrument Used: 3mm curette Tissue Removed: Fibrin Severity: Limited To Skin Breakdown Amount of bleeding with debridement: None Bleeding Controlled with: Pressure Patient tolerated procedure: Patient tolerated procedure well Post-Debridement Measurements and Additional Note: Post-Debridement Measurements/Treatment MARVIN - Nurse 1 - General Ulcer Assessment Start: 10/21/21 08:10 Freq: Status: Active Protocol: NOHEMI Activity Type Activity Date Activity User E-Sign Co-Sign Detail Recorded Client Recorded Date Recorded By Document 10/21/21 08:10 DL [id number] 10/21/21 08:15 DL 10/21/21 08:10 - Today's Visit Information Type of service Follow-up Visit (Physician/ACCOUNT COORDINATOR ) Arrival Mode Ambulatory Transfer Assistance None Patient Identification Verified (Name & Yes ) Vital Signs Temperature (97.8 F-99.1 F) 97 F L Temperature Source Temporal Respiratory Rate (12-18) 20 H Respiratory rate source Observation Comment refused BP today History Since Last Visit- (Skip if this is Patient's initial visit) Have you changed medications since your No last visit? Any new allergies or adverse reactions No Had a fall/change in ADL's that may No increase risk of falls Signs or symptoms of abuse and/or No neglect since last visit Have you been in the hospital since your No last visit? Has dressing in place as prescribed Yes Has compression in place as prescribed Yes Has offloadiing in place as prescribed N/A Experienced any changes in pain level or No management Pain Scale: 0-10 Numeric Is Patient Pain Free? Yes WC - Nurse 1 - General Ulcer Measurement Start: 10/21/21 08:10 Freq: Status: Active Protocol: Activity Type Activity Date Activity User E-Sign Co-Sign Detail Recorded Client Recorded Date Recorded By Document 10/21/21 08:10 DL [id number] 10/21/21 08:15 DL 10/21/21 08:10 Wound Center Nurse 1 #1 Right Medial Ankle -Current Size (cm) - Length 0.2 -Current Size (cm) - Width 0.2 -Current Size (cm) - Depth 0.2 -Total Square Cm 0.04 -Photo Taken No -Exudate Amt Medium -Exudate Type Serosanguineous -Wound Margin Indistinct, Non -Visible -Granulation Amt Small (1-33%) -Granulation Quality Red -Necrosis Amt Small (1-33%) -Necrotic Tissue Type Adherent Slough -Texture (Ana-wound Skin Appearance) Excoriation, Scarring,Rash -Moisture (Ana-wound Skin Appearance) Weeping -Color (Ana-wound Skin Appearance) No Abnormality -Temperature (Ana-wound Skin No Abnormality Appearance) (Pt Warm) -Tenderness on Palpation (Ana-wound No Skin Appearance) -Ulcer Cleansing Rinsed/ Irrigated with Saline -Foul Odor after Cleansing No -Anesthetic Used 5% Lidocaine Gel Right Calf (cm) 45 Right Ankle (cm) 21.4 WC - Nurse 2 - General Ulcer CM Notes Start: 10/21/21 08:10 Freq: Status: Active Protocol: Activity Type Activity Date Activity User E-Sign Co-Sign Detail Recorded Client Recorded Date Recorded By Document 10/21/21 08:31 MW [id number] 10/21/21 08:35 MW 10/21/21 08:31 Wound Center Nurse 2 #1 Right Medial Ankle -Time 08:33 -Correct Patient Yes -Correct Side, Site, Position Yes -Correct Procedure Yes -Procedure Performed Yes -Type of Procedure Debridement -Clinical Debridement Subcutaneous -Tissue Removed Subcutaneous -Post Debridement (cm) - Length 0.1 -Post Debridement (cm) - Width 0.1 -Post Debridement (cm) - Depth 0.1 -Total Square (Post) (cm) 0.01 -Area of Debridement (cm) - Length 0.1 -Area of Debridement (cm) - Width 0.1 -Total Square (Area) (cm) 0.01 -Tunneling No -Undermining/Tunneling No -Circular Undermining No -Wound/Ulcer Outcome Not Healed -Ulcer Cleansing Rinsed/ Irrigated with Saline -Foul Odor after Cleansing No -Bioengineered Tissue No -Bleeding Controlled with Pressure -Offloading No -Debridement - Subq, 1st 20sq cm Yes WC - Nurse 3 - General Ulcer D/C NN Start: 10/21/21 08:10 Freq: Status: Active Protocol: Activity Type Activity Date Activity User E-Sign Co-Sign Detail Recorded Client Recorded Date Recorded By Document 10/21/21 08:35 MW [id number] 10/21/21 08:37 MW 10/21/21 08:35 Wound Care Nurse 3 -Ulcer Cleansing Rinsed/ Irrigated with Saline -Foul Odor after Cleansing No -Negative Pressure Wound Therapy N/A -Primary Dressing Applied Mepilex Border, Promogran -Mepilex Border 2 -Promogran 1 Right -Lotion applied to leg before No compression wrap -Stockings Yes Pain Scale: 0-10 Numeric Is Patient Pain Free? Yes Teaching: Wound Center Dressing Your Wound -Person Taught Patient -Teaching Method Discussion -Response to teaching Verbalize understanding WC - Visit Discharge Discharge Condition Stable Ambulatory Status Ambulatory Transportation Private Auto Accompanied by self Medication Reconcilliation completed & No provided to patient/care provider Clinical Summary of Care Provided Yes Assessment/Plan Assessment/Plan (1) Infected wound: CODE(S): T14.8XXA - Other injury of unspecified body region, initial encounter; L08.9 - Local infection of the skin and subcutaneous tissue, unspecified PLAN: Cultures obtained and grew nothing (2) Puncture wound: CODE(S): T14.8XXA - Other injury of unspecified body region, initial encounter PLAN: Wash leg with antibacterial soap pack small wound with Promogran top with gauze dressing and Olga every day Follow-up in 2 week (3) Peripheral vascular disease: CODE(S): I73.9 - Peripheral vascular disease, unspecified PLAN: Start wearing the pression stockings that were prescribed to the right leg (4) Edema of right lower leg: CODE(S): R60.0 - Localized edema PLAN: Appointment with Dr. Fischer continue treatments
== END 2021-10-23 23:59 ==
LOC: WC 08:15
PROVIDERS: PCP Family Medicine; Referring Provider Nurse Practitioner; Visit Provider Nurse Practitioner
DX: I73.9 Peripheral vascular disease, unspecified (principal); S81.831A Puncture wound without foreign body, right lower leg, initial encounter; T14.8XXA Other injury of unspecified body region, initial encounter; W60.XXXA Contact with nonvenomous plant thorns and spines and sharp leaves, initial encounter; R60.0 Localized edema; Y93.89 Activity, other specified; Y92.9 Unspecified place or not applicable
CPT/HCPCS: 11042